=== PATIENT | female | born 1965 | race Hispanic/Latino ===

== ENCOUNTER 2018-12-07 19:08 | Emergency (ER) | payer OTHER | END 2018-12-07 19:54 | disposition home or self-care (01) | LOC: EDH 19:08 | DX: F41.1 Generalized anxiety disorder (principal); G44.209 Tension-type headache, unspecified, not intractable | CPT/HCPCS: 99281 ==

== ENCOUNTER 2024-08-01 19:43 | Emergency (ER) | payer BC ==
[~2024-08-01] VITALS: Ht 157.5 cm; Wt 127.0 kg
--- NOTE | 2024-08-01 19:46 | NUR ---
COVID, STREP AND FLU SWABS COLLECTED AND SENT FOR ANY FUTURE ORDERS
--- NOTE | 2024-08-01 20:23 | ERN ---
ED Note History of Present Illness Stated Complaint: SORE THROAT, BLISTER ON TONGUE Chief Complaint: Sore Throat Time Seen by MD: 19:46 Time Seen by Midlevel: 19:46 Dictation: The patient is a 58-year-old female with a history of diabetes, hypertension who presents to the emergency department with complaints of blister to the right side of her tongue and sore throat for two weeks. Patient reports that she has follow up with her primary doctor and is currently on acyclovir for herpes. Patient denies any fevers, nausea or vomiting, chest pain or shortness of breath. Denies any other complaints. Allergies: Coded Allergies: No Known Allergies (Unverified Allergy, Unknown, 08/01/24) Past Medical History Past Medical History: Depression, High Cholesterol, Hypertension, Schizophrenia Surgical History: None RN Note Reviewed/Agreed w/PFSH: Yes Review of System Dictation Constitutional: Negative for fever,chills, and weight loss Eyes: Negative for injury, pain,redness, and discharge ENT: Negative for injury,pain or swelling positive for tongue blister, positive sore throat Cardiovascular: Negative for chest pain, palpitations, and edema Respiratory: Negative for shortness of breath, cough, and wheezing, Abdomen/GI: Negative for abdominal pain, nausea, vomiting, diarrhea, and constipation Back: Negative for injury and pain : Negative for injury, bleeding and discharge MS/Extremity: Negative for injury and deformity Skin: Negative for rash, and discoloration Neuro: Negative for headache, weakness, numbness, tingling, and seizure Psych: Negative for suicide ideation, homicidal ideation, and hallucinations Initial Vital Sign VS Vital Signs Date Time Temp Pulse Resp B/P (MAP) Pulse Ox O2 Delivery O2 Flow Rate FiO2 08/01/24 19:45 97.7 89 20 165/90 96 Room Air 08/01/24 19:54 0 21 Physical Exam Dictation Vital Signs reviewed General Appearance: Alert, oriented x 3, no acute distress, well developed, nourished. Head and Face: non-traumatic. Eyes: PERRL, pink conjunctivas, eyelid no trauma, anterior chamber with arcus senilis. Ears: Pinnas intact and no signs of trauma or erythema ear canals clear and no discharge TM no erythema Nose: No discharge, no bleeding. Oropharynx: Mouth normal, tongue pink. Small ulcer noted to the right side of tongue pharynx clear,no erythema, tonsils no exudates, no abscesses noted, mucous membrane moist Neck: Supple, non-tender, no thyromegaly, no masses, no JVD, no bruits , no abscess, no swelling Breast:Deferred Chest:No tenderness, no crepitus, no paradoxical movement, no retractions Lungs:Clear, well-ventilated, symmetric, no rales, no wheezing, no rhonchi, no stridor, good breath sounds bilaterally Heart: Regular rate, regular rhythm, no murmur, no gallops Vascular: no peripheral edema, Abdomen: Soft, positive bowel sounds, nondistended, no guarding, nontender, no rebound, no masses no hepatomegaly, no splenomegaly, no Agarwal's sign, no hernias. Rectal: Deferred Genital: Deferred Neurological: Normal speech, motor function intact, sensory function intact Musculoskeletal: Neck nontender, full range of motion, back nontender, full range of motion, Extremities: nontender, full range of motion Skin: Color pink, dry, no turgor, no rash, no lacerations, no abrasions, no contusions. Lymphatic: Deferred Results (Laboratory/Radiology) Laboratory/Radiology Laboratory Tests Test 08/01/24 19:45 Influenza Type A Antigen Negative For Type A Influenza Type B Antigen Negative For Type B SARS-CoV-2, RNA, NAAT NEGATIVE SARS CoV-2 Group A Streptococcus Rapid negative (NEGATIVE) Labs Reviewed?: Yes ED Course ED Course Orders Procedure Category Date Status Time Influenza Type A & B, LAB 08/01/24 Complete Rapid 19:53 Rapid (Group A Strep) LAB 08/01/24 Complete 19:53 Covid Rna Naat LAB 08/01/24 Complete 19:53 Ketorolac PHA 08/01/24 Complete Tromethamine 30mg/Ml 20:00 Lidocaine Hcl 2% PHA 08/01/24 Complete Viscous (Lidocaine Hcl 20:00 Current Medications Medications (Trade) Dose Ordered Sig/Marj Route PRN Reason Start Time Stop Time Status Last Admin Dose Admin Ketorolac Tromethamine (toRADol) 30 mg ONCE ONCE IM 08/01/24 20:00 08/01/24 20:01 DC 08/01/24 20:42 Lidocaine HCl (Lidocaine HCl 2% Viscous) 10 ml ONCE ONCE PO 08/01/24 20:00 08/01/24 20:01 DC 08/01/24 20:42 Vital Signs Date Time Temp Pulse Resp B/P (MAP) Pulse Ox O2 Delivery O2 Flow Rate FiO2 08/01/24 19:54 98.2 79 18 154/85 97 Room Air* 0 21 08/01/24 19:45 97.7 89 20 165/90 96 Room Air Medical Decision Making MDM The patient is a 58-year-old female with a history of diabetes, hypertension who presents to the emergency department with complaints of blister to the right side of her tongue and sore throat for two weeks. Patient reports that she has follow up with her primary doctor and is currently on acyclovir for herpes. Patient denies any fevers, nausea or vomiting, chest pain or shortness of breath. Denies any other complaints. Serology was negative. On physical exam patient is in no acute distress, no other wounds noted other than the one on her tongue which she is already getting treatment with antiviral medication. No swelling to neck, no masses, airway intact. Patient with no drooling. Patient will be discharged and instructed to follow up with her primary doctor. Differential diagnosis: Pharyngitis, strep throat, herpes, upper respiratory infection Need for hospitalization: Patient does not meet criteria for hospitalization. There are no social concerns with this patient. DX & DISP Disposition: Discharge Departure Impression: Primary Impression: Sore throat Additional Impression: Oral herpes simplex infection Condition: Stable Additional Instructions: Please continue treatment given by your primary doctor. Continue to follow up with the your PCP if symptoms worsen please return to ER. FOLLOW-UP WITH PRIMARY CARE PROVIDER IN 1 TO 2 DAYS. TAKE MEDICATIONS DIRECTED HERE IN THE EMERGENCY ROOM. OKAY TO CONTINUE HOME MEDICATIONS UNLESS OTHERWISE DISCUSSED DURING YOUR VISIT IN THE EMERGENCY ROOM TODAY. RETURN TO YOUR NEAREST EMERGENCY ROOM IF SYMPTOMS WORSEN OR IF THERE IS NO IMPROVEMENT. CALL 911 IF YOU NEED IMMEDIATE ASSISTANCE. TAKE TYLENOL OR MOTRIN [id number] NEEDED AND IF NO CONTRAINDICATIONS ARE PRESENT. INCREASE ORAL HYDRATION. A WOUND CULTURE OR URINE CULTURE WAS ORDERED HERE IN THE EMERGENCY ROOM DEPARTMENT PLEASE FOLLOW-UP WITH PRIMARY CARE PROVIDER AND ADVISE THEM TO GET REPEAT PORTS FROM OUR FACILITY. IF YOU HAD ANY GALILEA WRAP/SPLINTS THAT WERE APPLIED HERE, PLEASE DO NOT REMOVE THEM UNTIL YOU SEE YOUR PRIMARY CARE OR SPECIALTY. Referrals: SELF,REFERRAL (PCP) Time of Disposition: 20:49 I have reviewed the case, and I agree with, Diagnosis and Plan [facility] August 01, 2024 20:23
[2024-08-01 20:34] LABS: RAPID GROUP A STREP negative (NEGATIVE)
[2024-08-01 20:40] LABS: SARS-CoV-2, RNA, NAAT NEGATIVE SARS CoV-2 (NEGATIVE)
[2024-08-01] MEDS: LIDOCAINE HCL 2% VISCOUS 15 ML UDCUP PO ONE (20:42)
[2024-08-01] MEDS: ketOROlac 30MG VIAL (30MG/ML) IM ONE (20:42)
[2024-08-01 20:46] LABS: INFLUENZA TYPE A Negative For Type A (NEGATIVE); INFLUENZA TYPE B Negative For Type B (NEGATIVE)
[2024-08-01 20:51] VITALS: BP 149/82; PULSE 74; RESP 18; TEMP 98.3; O2SAT 96
== END 2024-08-01 20:59 | disposition home or self-care (01) ==
LOC: EDH 19:43
DX: J02.9 Acute pharyngitis, unspecified (principal); B00.9 Herpesviral infection, unspecified; E78.00 Pure hypercholesterolemia, unspecified; F20.9 Schizophrenia, unspecified; F32.A Depression, unspecified; I10 Essential (primary) hypertension; Z20.822 Contact with and (suspected) exposure to COVID-19
CPT/HCPCS: 99284; 87635; 87880; 87804 ×2; 96372; J1885